=== PATIENT | female | born 1965 | race Caucasian/White ===

== ENCOUNTER → 2019-06-23 | Outpatient (CLI) | payer OTHER ==
[~2019-06-23] MED LIST: ALIGN4 MG PO; ALTOPREV20 MG PO; CIPROFLOXACIN500 M1 PO; CLEOCIN HCL300 MG PO; DARVOCET-N 1001 EAC1 PO; FLAXSEED OIL1000 MG PO; GLUCOSAMINE; NABUMETONE 500500 M1 PO; PRILOSEC 20 MG20 MG PO; PROTONIX 20 MG20 M1 PO; ZINC CHELATE50 MG PO; [UNRECOGNIZED DRUG - OTHER]; [UNRECOGNIZED DRUG - OTHER]; [UNRECOGNIZED DRUG - OTHER]
== END ==
LOC: RAD 13:22
DX: R50.9 Fever, unspecified (principal)